=== PATIENT | male | born 1965 | race Caucasian/White ===

== ENCOUNTER 2018-01-24 12:53 | Outpatient (CLI) | payer OTHER, SELFPAY ==
--- NOTE | 2018-01-24 16:02 | W.PREOPHP ---
Date of service: 01/24/18 Assessment and Plan (1) Derangement of medial meniscus of left knee: Current visit: No Status: Acute Left knee arthroscopy with partial medial meniscectomy. Details of surgery were discussed with patient as well as risks, and pertinent anatomy. All questions were answered. History of Present Illness Chief Complaint: Left knee injury Narrative: Eduard is a 52-year-old male who is been complaining of left knee pain since an injury that he sustained a few months ago. He had made some slight improvement with conservative treatment, including an injection, but really only got to a point that was not completely better. He continues to have pain on daily basis, and at this point it is not improving anymore. He eventually had an MRI done which did show a medial meniscus tear of the left knee. He has had an injection which helped his knee pain for a limited amount of time. Since then the pain has returned to where it was prior to the injection. Although this is better since his injury, it is not to the point where he is happy with his result. Since he has failed conservative treatment at this point, Dr. Lagunas recommends a left knee arthroscopy with partial medial meniscectomy. Patient is anxious to proceed. Pertinent Surgical Information Patient denies history of CVA, UT, angina, asthma, COPD, renal or liver disorders, hepatitis, bleeding disorders, diabetes, immune or thyroid disorders. No complications from anesthesia. Review of Systems Constitutional Denies fever(s) ENT Denies dizziness and Denies sore throat Cardiovascular Denies chest pain, Denies palpitations and Denies dyspnea Respiratory Denies dyspnea Gastrointestinal Denies abdominal pain, Denies melena, Denies hematochezia, Denies diarrhea, Denies nausea and Denies vomiting Genitourinary Denies hematuria and Denies dysuria Neurologic Denies dizziness Endocrine Denies palpitations [facility] Medical History Sleep apnea (Chronic 04/01/14) Hyperlipidemia (Chronic 07/08/08) Essential hypertension (Chronic) Social History Smoking/Tobacco Use Status: Current every day Surgical History History of laparoscopic cholecystectomy (Chronic) Meds Home Medications Medication Instructions Recorded Confirmed Type ibuprofen 4 tab PO DAILY PRN 05/22/12 01/24/18 History omeprazole 20 mg PO DAILY tab-cap 05/22/12 01/24/18 History aspirin [Aspir-81] 81 mg PO DAILY #90 tab-cap 05/21/13 01/24/18 History amlodipine 5 mg PO DAILY #90 tab-cap 05/16/17 01/24/18 Rx pravastatin [Pravachol] 20 mg PO DAILY #90 tab-cap 05/16/17 01/24/18 Rx Allergies Allergy/AdvReac Type Severity Reaction Status Date / Time lisinopril AdvReac Intermediate cough Unverified 01/24/18 13:08 Exam [facility] Head: normocephalic and atraumatic General nose exam: no nasal discharge Throat: uvula midline and no uvular edema Other: soft palate rises symmetrically, no erythema Eyes Conjunctivae: conjunctivae normal Sclera: sclerae normal Pupils: PERRL Resp Effort & Inspection: normal respiratory effort Auscultation: clear to auscultation bilaterally and no wheezes Cardio Rate: regular rate Rhythm: regular rhythm Heart Sounds: S1 normal, S2 normal and no murmurs
--- NOTE | 2018-01-24 16:09 | HPE_ITS ---
Date of service: 01/24/18 Assessment and Plan (1) Derangement of medial meniscus of left knee: Current visit: No Status: Acute Left knee arthroscopy with partial medial meniscectomy. Details of surgery were discussed with patient as well as risks, and pertinent anatomy. All questions were answered. History of Present Illness Chief Complaint: Left knee injury Narrative: Eduard is a 52-year-old male who is been complaining of left knee pain since an injury that he sustained a few months ago. He had made some slight improvement with conservative treatment, including an injection, but really only got to a point that was not completely better. He continues to have pain on daily basis, and at this point it is not improving anymore. He eventually had an MRI done which did show a medial meniscus tear of the left knee. He has had an injection which helped his knee pain for a limited amount of time. Since then the pain has returned to where it was prior to the injection. Although this is better since his injury, it is not to the point where he is happy with his result. Since he has failed conservative treatment at this point, Dr. Lagunas recommends a left knee arthroscopy with partial medial meniscectomy. Patient is anxious to proceed. Pertinent Surgical Information Patient denies history of CVA, DC, angina, asthma, COPD, renal or liver disorders, hepatitis, bleeding disorders, diabetes, immune or thyroid disorders. No complications from anesthesia. Review of Systems Constitutional Denies fever(s) ENT Denies dizziness and Denies sore throat Cardiovascular Denies chest pain, Denies palpitations and Denies dyspnea Respiratory Denies dyspnea Gastrointestinal Denies abdominal pain, Denies melena, Denies hematochezia, Denies diarrhea, Denies nausea and Denies vomiting Genitourinary Denies hematuria and Denies dysuria Neurologic Denies dizziness Endocrine Denies palpitations [facility] Medical History Sleep apnea (Chronic 04/01/14) Hyperlipidemia (Chronic 07/08/08) Essential hypertension (Chronic) Social History Smoking/Tobacco Use Status: Current every day Surgical History History of laparoscopic cholecystectomy (Chronic) Meds Home Medications Medication Instructions Recorded Confirmed Type ibuprofen 4 tab PO DAILY PRN 05/22/12 01/24/18 History omeprazole 20 mg PO DAILY tab-cap 05/22/12 01/24/18 History aspirin [Aspir-81] 81 mg PO DAILY #90 tab-cap 05/21/13 01/24/18 History amlodipine 5 mg PO DAILY #90 tab-cap 05/16/17 01/24/18 Rx pravastatin [Pravachol] 20 mg PO DAILY #90 tab-cap 05/16/17 01/24/18 Rx Allergies Allergy/AdvReac Type Severity Reaction Status Date / Time lisinopril AdvReac Intermediate cough Unverified 01/24/18 13:08 Exam [facility] Head: normocephalic and atraumatic General nose exam: no nasal discharge Throat: uvula midline and no uvular edema Other: soft palate rises symmetrically, no erythema Eyes Conjunctivae: conjunctivae normal Sclera: sclerae normal Pupils: PERRL Resp Effort & Inspection: normal respiratory effort Auscultation: clear to auscultation bilaterally and no wheezes Cardio Rate: regular rate Rhythm: regular rhythm Heart Sounds: S1 normal, S2 normal and no murmurs
== END 2018-01-24 13:13 ==
PROVIDERS: PCP Emergency Medicine; Visit Provider Student in an Organized Health Care Education/Training Program
DX: Z01.818 Encounter for other preprocedural examination (principal)
CPT/HCPCS: NC

== ENCOUNTER 2018-02-01 06:15 | Day surgery (SDC) | payer OTHER, SELFPAY ==
[2018-02-01] VITALS (7 sets, daily range): BP systolic 120–145; BP diastolic 59–84; PULSE 62–69; RESP 16–20; TEMP 36.6; O2SAT 96–98
[2018-02-01] MEDS: Lactated Ringers 1,000 ML 80 ML IV (06:53)
--- NOTE | 2018-02-01 07:25 | W.PM.DSUDISC ---
Discharge Plan Disposition Patient Disposition: HOME Condition: Good Discharge Details Reason For Visit: Left Knee Arthroscopy Attending Provider: Rui Lagunas Primary Care Provider: Eben Padilla Home Meds and New Rx's Prescriptions: New ibuprofen 600 mg tablet 600 mg PO TID PRNQty: 90 RF: 3 acetaminophen 500 mg capsule 1,000 mg PO Q8H PRN (Reason: pain) Qty: 90 RF: 0 oxycodone 5 mg tablet 5 mg PO Q4H Qty: 10 RF: 0 Continue omeprazole 20 MG capsule,delayed release(DR/EC) 20 mg PO DAILY RF: 0 aspirin [Aspir-81] 81 MG tablet,delayed release (DR/EC) 81 mg PO DAILY Qty: 90 RF: 3 amlodipine 5 MG tablet 5 mg PO DAILY Qty: 90 RF: 4 pravastatin [Pravachol] 20 MG tablet 20 mg PO DAILY Qty: 90 RF: 3 Discontinued ibuprofen 200 MG tablet 4 tab PO DAILY PRN RF: 0 Discharge Instructions Stand Alone Forms: [facility] Knee Arthroscopy Equipment/Supplies: Partial Weight Bearing Crutches Activity:: Activity as Tolerated Remove Dressings/Wound Care:: 72 hours Shower/Bathe:: 72 hours Diet:: As Tolerated Discharge Orders Discharge Orders: Discharge Order (Routine); Ordered 02/01/18 Ordered By: Rui Lagunas DS: Diagnosis Discharge Diagnosis (1) Internal derangement of left knee: Status: Acute (2) Derangement of medial meniscus of left knee: Status: Acute
[2018-02-01] MEDS: Bupivacaine 0.25% Pres-Free 30 ML VIAL (07:41)
[2018-02-01] MEDS: Ketorolac 15 MG/ML VIAL IVP (08:27)
--- NOTE | 2018-02-01 08:52 | W.PM.OP ---
Date of service: 02/01/18 Time of Service: 08:52 Operative Note DATE OF PROCEDURE: 02/01/18 PRE-OP DIAGNOSIS: Left knee medial meniscal tear POST-OP DIAGNOSIS: other (Left knee radial medial meniscal tear and complex lateral meniscal tear) PROCEDURE: Left knee arthroscopic partial medial and lateral meniscectomy SURGEON: Rui Lagunas ANESTHESIA: GETA ESTIMATED BLOOD LOSS: 0 PATHOLOGY: none sent COMPLICATIONS: None Patient was transported to: PACU Patient's condition: stable Indications: I have seen Eduard in clinic for symptoms of a meniscus tear. This was confirmed based on MRI and exam findings. Nonoperative measures were exhausted but disability and pain persisted. I discussed knee arthroscopy with meniscal intervention with the patient. I reviewed the risks of the procedure to include, but not limited to, bleeding, infection, pain, stiffness, damage to nerves or vessels, recurrence, blood clot. Despite these risks, the patient elected to proceed. Findings: A diagnostic arthroscopy was performed with the following findings: Suprapatellar Pouch: Some inflammatory change, no loose bodies Medial Compartment: Radial meniscal tear just medial to the root, root disconnected from body of meniscus, grade I chondromalacia of the tibia and grade 2 chondral lesion of the femur primarily the weightbearing zones, no loose bodies Notch: ACL and PCL were intact Lateral Compartment: Complex meniscal tear at the level of the root, partially torn but intact meniscal root, no significant chondromalacia or signs of arthritis, no loose bodies Patellofemoral Compartment: Areas of grade 3 and focal grade IV chondromalacia of the patella with large osteophytes, no apparent patellar maltracking Procedure Description: Eduard was greeted in the preoperative holding area where the correct side was identified and marked. The consent was reviewed with the patient and signed. The history and physical was updated. All questions were answered. Eduard was taken back to the operating room. The patient was placed into the supine position on the operating room table. A nonsterile tourniquet was placed high onto the leg but not used. All bony prominences were well padded. Prophylactic antibiotics in the form of cefazolin were administered. The left leg was then prepped with Chloraprep and draped in a standard fashion with stockinette and extremity drape. A timeout to confirm correct identity, side and site, procedure, allergies, anesthesia, and medical concerns was performed. The leg was placed into a pneumatic leg morley, SPIDER2. A standard lateral portal was made at the lateral border of the patella tendon in line with the inferior pole of the patella, soft spot. The skin and deep tissue was incised sharply and the blunt trochar was inserted atraumatically. A diagnostic arthroscopy was performed and the findings are listed above. The suprapatellar pouch had mild inflammatory changes. The patellofemoral articulation showed focal areas of grade 3 and grade IV chondromalacia of the patella with some grade 2 changes of the superior aspect of the trochlea. The patella had good tracking. Large osteophytes are seen of the patella both superiorly and inferiorly. The lateral gutter had no loose bodies and the medial gutter had no loose bodies. The knee was brought into some valgus stress in extension to open the medial compartment. A medial portal was made, localized by a spinal needle. The portal was created with an #11 blade through skin and capsule under direct visualization avoiding any meniscal injury. A probe was then inserted into the medial compartment. The medial compartment was fully inspected. The chondral surface of the tibia showed some focal grade I chondromalacia and the surface of the femur showed grade II chondromalacia. The medial meniscus had a radial meniscal tear just medial to the root insertion extending all the way to the periphery. After evaluation, the meniscus was debrided down to a stable base using a series of biters and arthroscopic kathy. It was probed afterwards to confirm that the tear had been removed and the meniscus was stable. During this debridement I smoothed the edges of this radial tear so there is no loose flaps. However, I did not perform a repair. There was a gap between the meniscal body and the meniscal root. The remnant medial meniscus however was well attached to the periphery of the capsule preventing complete displacement. The notch was then inspected which showed an intact ACL and an intact PCL. The leg was then brought into a figure of 4 position. The lateral compartment was fully inspected with the arthroscope and a probe. The chondral surface of the lateral femur showed no significant chondromalacia. The chondral surface of the lateral tibia showed no significant chondromalacia. The lateral meniscus had a complex meniscal tear involving the root. The root was intact although there was some partial tearing. This was debrided down with an arthroscopic shaver. The arthroscope was brought back into the suprapatellar pouch and the leg was in full extension. The knee was thoroughly irrigated with the arthroscopic fluid on high flow and pressure. Inflow was stopped and excess fluid was removed. The wounds were closed with 4-0 Nylon. They were dressed with Xeroform, 4x4 gauze, ABD pad, Kerlix and an ROWENA wrap. A cryo-cuff was applied. The patient tolerated the procedure well and was returned to the Same Day Surgery area in a stable condition suffering no known complication.
[2018-02-01] MEDS: oxyCODONE 5 MG TAB PO (09:30)
== END 2018-02-01 10:20 | disposition home or self-care (01) ==
PROVIDERS: PCP Emergency Medicine; Visit Provider Student in an Organized Health Care Education/Training Program
PROC: (CPT 29870; principal; 2018-02-01 07:30)
DX: S83.222A Peripheral tear of medial meniscus, current injury, left knee, initial encounter (principal); S83.272A Complex tear of lateral meniscus, current injury, left knee, initial encounter; X58.XXXA Exposure to other specified factors, initial encounter; M94.262 Chondromalacia, left knee; M22.42 Chondromalacia patellae, left knee; M25.762 Osteophyte, left knee
CPT/HCPCS: 29880; J0690; J1100; J1885; J2405

== ENCOUNTER 2018-03-21 09:14 | Outpatient (CLI) | payer OTHER, SELFPAY ==
[2018-03-21 11:43] LABS: BUN 19 mg/dL (7-18); CREATININE 0.83 mg/dL (0.70-1.30); Chloride 104 mmol/L (98-107); Glucose 109 mg/dL (70-100); Potassium 4.3 mmol/L (3.5-5.1); Sodium 139 mmol/L (136-145)
[2018-03-21 16:15] LABS: Hemoglobin A1C 5.8 % (4.5-6.2)
== END 2018-03-21 09:34 ==
PROVIDERS: PCP Emergency Medicine; Visit Provider Emergency Medicine
DX: E11.9 Type 2 diabetes mellitus without complications (principal); I10 Essential (primary) hypertension
CPT/HCPCS: 36415; 80048; 83036

== ENCOUNTER 2018-12-31 11:03 | Day surgery (SDC) | payer BC, SELFPAY ==
--- NOTE | 2018-12-31 07:09 | COLE_ITS ---
Date of service: 12/31/18 Time of Service: 12:56 Colonoscopy Report Date of procedure: 12/31/18 Pre-op diagnosis general: Colon Cancer Screening Post-op diagnosis procedure note: other (numerous polyps in clustera scattered from cecum to prox. descending) Procedure: Colonoscopy with random biopsies of multiple polyps throughout the colon Surgeon: Deneen Griffith Anesthesia proc note operative: other (General/ ASA 2/Ericka Cheng, ANDRES) Estimated blood loss (mL): 5 Pathology: other (Numerous bx of polyps from cecum to sigmoid colon) Complications: None Disposition: same day Indications: Mr. Correia is a pleasant 53 year old male seen in the office for a screening Colonoscopy. He has no family history of colon cancer. Risks, benefits and complications have been reviewed. Complications include but are not limited to bleeding, pain, perforation, missed small lesion/polyp, sore throat, aspiration and adverse reaction to the medications. Questions were entertained and answered to their satisfaction and they wished to proceed. No guarantees were given or implied. Prep: Miralax/Dulcolax Procedure Start Time: 12:56 Procedure End Time: 13:25 Retraction Time: 20 minutes Findings: Numerous polyps (too many to count) from cecum to proximal descending colon. a few polyps in the sigmoid colon and rectum. Procedure Description: After informed consent was obtained the patient was taken to the procedure room and placed in a left decubitous position. Monitors were applied and a time out was done. The patients name, date of , procedure, allergies to medications and metal in their body was reviewed. The patient was then sedated. Once sedated and comfortable a rectal exam was done. External exam was normal. Internal exam revealed a normal sphincter tone and no palpable masses. The prostate felt smooth. The scope was then introduced and retro-flexed. No internal hemorrhoids or masses were identified. The scope was then advanced to the cecum without difficulty. The TI and appendiceal orifice were identified. The prep was adequate. The scope was then slowly retracted over 20 minutes back into the rectum. There were numerous polyps from cecum to proximal descending colon. Most were clustered. There were a few clusters of polyps with ulceration concerning for cancer. Random biopsies were done with cold forceps of as many of the clusters of polyps as possible. There were a few single polyps in the sigmolid colon. The scope was removed and the patient was woken up and taken back to Same day surgery in stable condition. The patient tolerated the procedure well and there were no immediate c omplications. Follow up: I discussed the case with Rui Wells MD, Colorectal Surgeon at [facility] [place]. I will send him color copies of the pictures I took as well as the pathology results. If there is neoplasm noted in any of the biopsies then I will order a CT scan of Chest, ABDO/Pelvis as well as labs prior to being seen at [facility] [place]. Pathology was also contacted to give them a heads up on what I saw and what I am worried about.
--- NOTE | 2018-12-31 07:11 | PDOC.DSDIS_ITS ---
Discharge Plan Disposition Patient Disposition: HOME Condition: Good Discharge Details Reason For Visit: SCREENING Attending Provider: Deneen Griffith Primary Care Provider: Eben Padilla Home Meds and New Rx's Prescriptions: Continued omeprazole 20 MG capsule,delayed release(DR/EC) 20 mg PO DAILY RF: 0 aspirin [Aspir-81] 81 MG tablet,delayed release (DR/EC) 81 mg PO DAILY Qty: 90 RF: 3 amlodipine 5 mg tablet 5 mg PO DAILY Qty: 90 RF: 4 pravastatin [Pravachol] 20 mg tablet 20 mg PO DAILY Qty: 90 RF: 3 acetaminophen 500 mg capsule 1,000 mg PO Q8H PRN (Reason: pain) Qty: 90 RF: 0 ibuprofen 600 mg tablet 200 - 600 mg PO TID PRNRF: 0 Discontinued polyethylene glycol 3350 17 gram/dose powder 238 g PO ONCE Qty: 238 RF: 0 bisacodyl [Dulcolax (bisacodyl)] 5 mg tablet,delayed release (DR/EC) 5 mg PO ONCE Qty: 4 RF: 0 Discharge Instructions Instructions: Colonoscopy (DC), Colorectal Polyps (DC) Additional Instructions: Findings: Numerous polyps Follow up: I will call you with results. You [place] hear [place] [facility] [place] the next 10 days to 2 weeks Please call if you develop: fevers >101.5 Nausea or Vomiting Abdominal pain that is not transient DAY SURGERY UNIT POST ENDOSCOPY INSTRUCTIONS 1. Because there will be medication in your system for the next 24 hours, you may feel a little sleepy. Your coordination will be affected. Therefore: a. Do not drive or operate dangerous equipment for 24 hours. b. Do not drink alcohol beverages for 24 hours (not even beer). c. Plan to go home and rest for the day. 2. Generally there are no restrictions on your activity after a day or so has gone by, but you may feel a bit fatigued for a few days. 3 After you arrive home you may have a light meal and return to a normal diet as you can tolerate it without feeling sick to your stomach. 4. After surgery, you may feel pain or discomfort. This should be only transient, but if it persists please contact your doctor. 5. If there are any questions regarding the findings of your procedure, please feel free to contact your doctor. 6. If you are unable to contact your doctor with a problem, contact the hospital at [phone]. 8. Continue all your regular medications unless directed otherwise. I understand the above instructions and have no questions. Signature of Patient or Responsible Adult Escort Date/Time Name of Responsible Adult Escort Signature of Nurse Date/Time Activity:: Activity as Tolerated Diet:: High Fiber and Heart healthy Discharge Orders Discharge Orders: Discharge Order (Routine); Ordered 12/31/18 Ordered By: Deneen Griffith DS: Diagnosis Discharge Diagnosis (1) S/P colonoscopy: Status: Acute (2) Colorectal polyps: Status: Acute
[2018-12-31 11:28] VITALS: BP 130/77; PULSE 66; RESP 18; TEMP 36.5; O2SAT 97
[2018-12-31] MEDS: Lactated Ringers 1,000 ML 80 ML IV (11:40)
--- NOTE | 2018-12-31 13:06 | BOWEL_PTH ---
PATIENT: Eduard Correia LOC: [facility] U#:[id number] AGE/SX: 53/M ROOM: RE12/31/[address]: Deneen Griffith MD : [id number] BED: DIS: 12/31/2018 SPEC #: [id number] RECD: 12/31/18 18:21 STATUS: KAREL REQ #: [id number] KANWAL: 12/31/18 13:[address]: Deneen Griffith DEPT: Surgical Specimen RECD BY: Savanah Childers ENTERED: 12/31/18 18:22 SP TYPE: Bowel OTHR DR: Eben Padilla DO Tissues: 1 - BIOPSY BOWEL 2 - BIOPSY BOWEL 3 - BIOPSY BOWEL 4 - BIOPSY BOWEL 5 - BIOPSY BOWEL Procedures: GROSS AND MICRO LEVEL 4 Comments: [id number]
[2018-12-31 14:07] VITALS: BP 142/87; PULSE 60; RESP 17; TEMP 36.4; O2SAT 98
== END 2018-12-31 14:46 | disposition home or self-care (01) ==
LOC: SUR 11:04
PROVIDERS: PCP Emergency Medicine; Visit Provider Surgery
PROC: 0DJD8ZZ Inspection of Lower Intestinal Tract, Via Natural or Artificial Opening Endoscopic (ICD-10-PCS; CPT 45378; principal; 2018-12-31 12:30)
DX: Z12.11 Encounter for screening for malignant neoplasm of colon (principal); K52.9 Noninfective gastroenteritis and colitis, unspecified; I10 Essential (primary) hypertension; K21.9 Gastro-esophageal reflux disease without esophagitis
CPT/HCPCS: 45380; 88305

== ENCOUNTER 2019-01-16 11:16 | Outpatient (CLI) | payer BC, SELFPAY ==
--- NOTE | 2019-01-16 11:13 | DI.RAD_ITS ---
EXAM: XR CHEST 2V PA LATERAL INDICATION: cough/wheezing, upper respiratory infection, J06.9. COMPARISON: CHEST 2 VIEWS PA,LAT from 03/14/2015 TECHNIQUE: 2D digital imaging was performed. FINDINGS: The heart size and pulmonary vasculature are within normal limits. No focal consolidating infiltrate , effusion, or pneumothorax is identified. Degenerative changes are present in the spine. IMPRESSION: No acute pulmonary process.
[2019-01-16 12:04] LABS: Abs Immature Grans 0.05 k/cumm (0.0-0.09); Absolute Basophil Count 0.07 k/cumm (0.0-0.2); Absolute Eosinophil Count 0.25 k/cumm (0.0-0.7); Absolute Lymphocyte Count 2.76 k/cumm (1.2-3.4); Absolute Monocyte Count 0.74 k/cumm (0.11-0.7); Absolute Neutrophil Count 7.88 k/cumm (1.2-6.7); Basophils % 0.6; Eosinophils % 2.1; HCT 41.7 % (40.0-50.0); HGB 14.6 g/dL (13.5-17.5); Immature Grans % 0.4; Lymphocytes % 23.5; Mean Corpuscular Hemoglobin 30.4 pg (27.0-33.0); Mean Corpuscular Volume 86.9 fL (80-95); Mean Platelet Volume 10.7 fL (8.0-11.0); Monocytes % 6.3; Neutrophils % 67.1; Platelet Count 210 x1000/uL (130-400); RBC Distribution Width 12.2 % (11.8-14.1); White Blood Cell Count 11.75 k/cumm (4.4-10.8)
[2019-01-16 13:16] LABS: ALT 68 U/L (16-63); AST 24 U/L (15-37); Albumin 4.2 g/dL (3.4-5.0); Alkaline Phosphatase 57 U/L (46-116); Anion Gap 9.6 mmol/L (3-11); BUN 20 mg/dL (7-18); Bilirubin, Total 0.3 mg/dL (0.2-1.0); CO2 27.4 mmol/L (21.0-32.0); CREATININE 0.85 mg/dL (0.70-1.30); Calcium 9.2 mg/dL (8.5-10.1); Calculated LDL 71 mg/dL; Chloride 104 mmol/L (98-107); Cholesterol 144 mg/dL (50-200); Glucose 88 mg/dL (70-100); HDL Cholesterol 22 mg/dL (40-60); Potassium 4.6 mmol/L (3.5-5.1); Sodium 141 mmol/L (136-145); Total Protein 7.1 g/dL (6.4-8.2); Triglyceride 258 mg/dL (30-150)
== END 2019-01-16 11:36 ==
PROVIDERS: PCP Emergency Medicine; Visit Provider Internal Medicine
DX: R05 Cough (principal); R06.2 Wheezing; J06.9 Acute upper respiratory infection, unspecified; R50.9 Fever, unspecified; E78.5 Hyperlipidemia, unspecified
CPT/HCPCS: 36415; 80053; 80061; 71046; 85025

== ENCOUNTER 2019-02-18 10:35 | Outpatient (CLI) | payer BC, SELFPAY ==
--- NOTE | 2019-02-18 10:40 | DI.RAD_ITS ---
EXAM: XR KNEE RT 3V AP,LAT,RAMIRO INDICATION: eval R knee pain. COMPARISON: LEFT KNEE 4+ VIEWS from 07/08/2017 TECHNIQUE: 2D digital imaging was performed. FINDINGS: There is mild narrowing of the medial femoral tibial joint and the patellofemoral joint. Periarticul ar spurring is seen involving all 3 joint compartments. There are enthesophytes seen at the superior and inferior aspect of the patella. No acute fracture or dislocation is seen. The soft tissues are unremarkable. IMPRESSION: Mild to moderate degenerative changes of the right knee.
--- NOTE | 2019-02-18 10:42 | DI.RAD_ITS ---
EXAM: XR KNEE LT 3V AP,LAT,RAMIRO INDICATION: L knee pain. COMPARISON: LEFT KNEE 4+ VIEWS from 07/08/2017 XR KNEE RT 3V AP,LAT,RAMIRO from 02/18/2019 TECHNIQUE: 2D digital imaging was performed. FINDINGS: There is mild narrowing of the medial femoral tibial joint space. Periarticular spurring is seen in the lateral femoral tibial joint and the posterior patella. There are enthesophytes seen at the ante rior superior and anterior inferior patella. There is again seen an exophytic lesion protruding off the posterior proximal tibia most suggestive of an osteochondroma. This appears stable. No acute fr acture or dislocation is seen. The soft tissues are unremarkable. IMPRESSION: Stable degenerative changes of the left knee.
== END 2019-02-18 10:55 ==
PROVIDERS: PCP Emergency Medicine; Visit Provider Student in an Organized Health Care Education/Training Program
DX: M25.561 Pain in right knee (principal); M25.562 Pain in left knee; M17.0 Bilateral primary osteoarthritis of knee
CPT/HCPCS: 73562

== ENCOUNTER 2019-04-22 17:45 | Emergency (ER) | payer BC, SELFPAY ==
[2019-04-22 17:50] VITALS: BP 164/88; PULSE 77; RESP 20; TEMP 36.7; O2SAT 97
[2019-04-22 17:58] VITALS: RESP 18
--- NOTE | 2019-04-22 18:02 | ED.GENADUL_ITS ---
Discharge Plan Disposition Patient Disposition: AGAINST MEDICAL ADVICE Condition: Good Discharge Details Chief Complaint: Chest Pain Clinical Impression: Abdominal pain, Atypical chest pain Primary Care Provider: Eben Padilla ED Provider: Gabriella Campbell Home Meds and New Rx's Prescriptions: Continued omeprazole 20 MG capsule,delayed release(DR/EC) 20 mg PO DAILY RF: 0 aspirin [Aspir-81] 81 MG tablet,delayed release (DR/EC) 81 mg PO DAILY Qty: 90 RF: 3 amlodipine 5 mg tablet 5 mg PO DAILY Qty: 90 RF: 4 pravastatin [Pravachol] 20 mg tablet 20 mg PO DAILY Qty: 90 RF: 3 acetaminophen 500 mg capsule 1,000 mg PO Q8H PRN (Reason: pain) Qty: 90 RF: 0 Discharge Instructions Instructions: Chest Pain (ED), Abdominal Pain (ED) Additional Instructions: Drink plenty of fluids. Avoid spicy foods, caffeine, chocolate, peppermint, alcohol or smoking as these can be triggers for gerd or reflux. Call your primary care doctor tomorrow to schedule a follow-up appointment for evaluation within the next week and for referral for outpatient repeat CT chest within the next 6 months for further evaluation of your right upper lobe lung nodule. Return to the emergency department if you develop any worsening or new concerning symptoms. 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 He states he frequently has pain in his right upper quadrant so this is not unusual, but he states he became more concerned when it radiated to his left upper quadrant. He does admit to intermittent radiation to his right chest. He states the pain lasted 1 hour and then resolved. He currently denies any symptoms. He states he did feel sweaty when the pain started but denies any nausea, vomiting, dizziness or shortness of breath. He also denies any fever, cough, vomiting, diarrhea or urinary symptoms. EKG on arrival notes a rate of 74, sinus with T wave inversion in lead III which is been seen in previous EKG. No acute ST ischemic changes. He is hemodynamically stable. He appears in no acute distress and nontoxic. He has tenderness to palpation in the right upper quadrant, epigastric region and left upper quadrant. His chest is nontender. Differential diagnosis appears more consistent with a GI etiology. He denies any tearing or ripping sensation so does not appear consistent with dissection. He denies any shortness of breath and has no DVT/PE risk factors and not consistent with PE. 2019 -- Patient referred for labs and imaging. Normal white blood cell count, electrolytes, lipase and troponin. CT chest noted a 7 mm right upper lobe nodule but no other acute findings and CT abdomen negative. Considering patient's age and history, recommended a repeat troponin but he is declining to stay at this time. The risks of and disability due to a cardiac etiology such as MD, explained and patient understands and would still like to leave. He demonstrates capacity make decisions. AMA form signed. He was advised to follow-up with his primary care doctor for evaluation and for repeat CT chest in the next 6 to 12 months. Usual and customary return precautions given prior to discharge. Medical Records Medical records reviewed: Yes I reviewed the patient's medical records. Imaging Data Radiologic Study: Radiologist's impression: CT Chest With Contrast Exam date and time: 04/22/2019 6:43 PM Age: 53 years old Clinical indication: Patient HX: PT stated no abdominal issues, chest pain for hour and a half TECHNIQUE: Imaging protocol: Computed tomography of the chest with intravenous contrast. COMPARISON: CR XR CHEST 2V PA LATERAL 01/16/2019 11:13 AM FINDINGS: Lungs: 7 mm nodule in the right upper lobe (431). Pleural space: Unremarkable. No pneumothorax. No pleural effusion. Heart: Unremarkable. No cardiomegaly. No pericardial effusion. Aorta: Unremarkable. No aortic aneurysm. Lymph nodes: Unremarkable. No enlarged lymph nodes. Bones/joints: Mild degenerative changes in the spine. Soft tissues: Unremarkable. IMPRESSION: 7 mm nodule in the right upper lobe (4/31).For patients at low risk (minimal or absent history of smoking and of other known risk factors), recommend CT at 6-12 months, then consider CT at 18-24 months. For patients at high risk (history of smoking or of other known risk factors), recommend CT at 6-12 months, then CT at 18-24 months. (Teresa et al., Fleischner Society, 2017) CT Abdomen And Pelvis With Contrast Exam date and time: 04/22/2019 6:43 PM Age: 53 years old Clinical indication: Patient HX: PT stated no abdominal issues, chest pain for hour and a half TECHNIQUE: Imaging protocol: Computed tomography of the abdomen and pelvis with intravenous contrast. COMPARISON: CR XR CHEST 2V PA LATERAL 01/16/2019 11:13 AM FINDINGS: Liver: Normal. No mass. Gallbladder and bile ducts: Cholecystectomy. Pancreas: Normal. No ductal dilation. Spleen: Normal. No splenomegaly. Adrenals: Normal. No mass. Kidneys and ureters: Normal. No hydronephrosis. Stomach and bowel: Unremarkable. No obstruction. No mucosal thickening. Appendix: No evidence of appendicitis. Intraperitoneal space: Unremarkable. No free air. No significant fluid collection. Vasculature: Mild atherosclerosis. Lymph nodes: Unremarkable. No enlarged lymph nodes. Bladder: Unremarkable as visualized. Reproductive: Unremarkable as visualized. Bones/joints: Mild degenerative changes in the spine. Soft tissues: Small umbilical hernia containing fat, uncomplicated. IMPRESSION: No acute finding. Lab Data Lab results reviewed: Yes I reviewed the patient's lab results. Labs: Laboratory Tests Range/Units 04/22/19 04/22/19 04/22/19 18:00 18:00 21:00 WBC (4.4-10.8) k/cumm 10.36 RBC (4.50-6.00) m/cumm 4.92 Hgb (13.5-17.5) g/dL 14.9 Hct (40.0-50.0) % 42.7 MCV (80-95) fL 86.8 MCH (27.0-33.0) pg 30.3 MCHC (32.0-36.0) g/dL 34.9 RDW (11.8-14.1) % 12.4 Plt Count (130-400) x1000/uL 220 MPV (8.0-11.0) fL 10.8 Immature Gran % % 0.4 Neutrophils % 64.8 Lymphocytes % 25.8 Monocytes % 5.5 Eosinophils % 2.9 Basophils % 0.6 Absolute Neutrophils (1.2-6.7) k/cumm 6.72 H Absolute Lymphocytes (1.2-3.4) k/cumm 2.67 Absolute Monocytes (0.11-0.7) k/cumm 0.57 Absolute Eosinophils (0.0-0.7) k/cumm 0.30 Absolute Basophils (0.0-0.2) k/cumm 0.06 Sodium (136-145) mmol/L 138 Potassium (3.5-5.1) mmol/L 3.9 Chloride (98-107) mmol/L 102 Carbon Dioxide (21.0-32.0) mmol/L 25.8 Anion Gap (3-11) mmol/L 10.2 BUN (7-18) mg/dL 14 Creatinine (0.70-1.30) mg/dL 0.87 Estimated GFR/1.73 m2 (mL/min/1.73m2) >= 60.00 Glucose (74-106) mg/dL 108 H Calcium (8.5-10.1) mg/dL 8.3 L Magnesium (1.8-2.4) mg/dL 1.8 Total Bilirubin (0.2-1.0) mg/dL 0.2 AST (15-37) U/L 21 ALT (16-63) U/L 51 Alkaline Phosphatase (46-116) U/L 52 Troponin I (<0.06) ng/Ml < 0.05 Cancelled Total Protein (6.4-8.2) g/dL 7.6 Albumin (3.4-5.0) g/dL 4.1 Lipase (73-393) U/L 139 ECG Data Attestation: I personally reviewed and interpreted this ECG (s) as follows: Interpretation: Rate of 74, sinus, T wave inversion in lead III. No acute ST elevation or depression. DE 184. QTc 417. QRS 80. HPI General Mode of arrival: ambulatory . Date/Time Provider Initiated Documentation: 04/22/19 17:56 . Limitations to Documentation: no limitations . Information obtained by: patient . History of Present Illness 53 year old M presents to the emergency department with the chief complaint of Upper abdominal pain, Quality is described as sharp, and is localized to the abdomen. Patient reports radiation to (Rare radiation for right upper quadrant to right chest). Patient started experiencing this hour(s) (1) and it has been now resolved. No relieving factors improve symptom(s), No exacerbating factors reported . Patient notes denies cough, diaphoresis, fever/chills, headaches, loss of appetite, malaise, nausea/vomiting, rash, seizure, shortness of breath, syncope and weakness. Patient did receive the following treatments prior to arrival, none Related Data Home Medications Medication Instructions Recorded Confirmed omeprazole 20 mg PO DAILY tab-cap 05/22/12 04/22/19 aspirin [Aspir-81] 81 mg PO DAILY #90 tab-cap 05/21/13 04/22/19 acetaminophen 1,000 mg PO Q8H PRN #90 cap 02/01/18 04/22/19 amlodipine 5 mg tablet 5 mg PO DAILY #90 tab-cap 08/08/18 04/22/19 pravastatin 20 mg tablet 20 mg PO DAILY #90 tab-cap 08/08/18 04/22/19 Previous Rx's Medication Instructions Recorded acetaminophen 1,000 mg PO Q8H PRN #90 cap 02/01/18 amlodipine 5 mg tablet 5 mg PO DAILY #90 tab-cap 08/08/18 pravastatin 20 mg tablet 20 mg PO DAILY #90 tab-cap 08/08/18 Allergies Allergy/AdvReac Type Severity Reaction Status Date / Time lisinopril AdvReac Intermediate cough Verified 04/17/19 10:05 General Stated Complaint: Chest Pain VERITO: 2 Review of Systems All systems reviewed & are unremarkable except as noted in HPI and below Constitutional Constitutional: Reports as per HPI, Denies chills and Denies fever(s) Eyes Eyes: Denies blurry vision ENT Ears, Nose, Mouth, and Throat: Denies dizziness, Denies sore throat and Denies throat swelling Cardiovascular Cardiovascular: Denies chest pain and Denies dyspnea Respiratory Respiratory: Denies cough and Denies dyspnea Gastrointestinal Gastrointestinal: Reports abdominal pain, Denies diarrhea and Denies vomiting Genitourinary Genitourinary: Denies hematuria and Denies dysuria Musculoskeletal Musculoskeletal: Denies back pain and Denies numbness Integumentary/Breasts Skin/Breast: Denies lesions and Denies rash Neurologic Neurologic: Denies dizziness, Denies focal weakness and Denies numbness Allergic/Immunologic Allergic/Immunologic: Denies throat swelling [facility] Medical History Arm paresthesia, right (Acute) Colorectal polyps (Acute) Essential hypertension (Chronic) Neg MPI 04/04 Hyperlipidemia (Chronic 07/08/08) TYPE IV Sleep apnea (Chronic 04/01/14) with CPAP Surgical History History of arthroscopic knee surgery (Chronic) History of laparoscopic cholecystectomy (Chronic) S/P colonoscopy (Acute ~12/31/18) Social History Smoking/Tobacco Use Status: Current every day Tobacco Type: cigarettes Smoking packs per day: 0.5 Smoking cigarettes per day: 10.0 Years smoked: 20 Smoking pack-years: 10.00 Alcohol Intake: current Alcohol Intake frequency: a few times a month Alcohol type: hard liquor Drug use: Never Substance use type: does not use Current gender identity: male Do you feel safe at home: Yes Do you feel safe in your relationship?: Yes Exam Const General: cooperative, healthy appearing and no acute distress HENMT Head: normal to inspection Face and sinus: normal facial exam Eyes General: appearance normal, both eyes and all related structures EOM: EOM intact bilaterally Neck Neck: normal visual inspection and No submandibular swelling Lymphatic: no lymphadenopathy noted Chest Chest: normal inspection of the chest and no tenderness Resp Effort & Inspection: normal respiratory effort and able to speak in complete sentences Auscultation: clear to auscultation bilaterally Cardio Rate: regular rate Rhythm: regular rhythm GI Inspection: normal to inspection and obesity Palpation: soft, not firm, not rigid and tender in the epigastrum, in the LUQ and in the RUQ Auscultation: normal bowel sounds Back/Spine/Pelvis Pelvis: no pain with anterior-posterior compression Skin General skin exam: no rashes or lesions noted Neuro General: alert, awake and oriented x3 Cognition: normal cognition Speech: speech normal Motor: muscle tone normal throughout Sensory Exam: no sensory deficits noted Extrem General: normal to inspection, full ROM, normal capillary refill, no calf tenderness bilaterally and no edema Psych Appearance: grossly normal Mental Status: mental status grossly normal Speech and Movement: speech and movement normal Affect: normal affect Course Vital Signs Vital signs: Vital Signs Temperature 98.1 F 04/22/19 17:50 Pulse 77 04/22/19 17:50 Respiratory Rate 20 04/22/19 17:50 Blood Pressure 164/88 H 04/22/19 17:50 Pulse Oximetry 97 04/22/19 17:50 Temperature 98.1 F 04/22/19 17:50 Temperature Source Skin 04/22/19 17:50 Pulse 77 04/22/19 17:50 Respiratory Rate 18 04/22/19 17:58 Respiratory Effort Non-Labored 04/22/19 17:58 Respiratory Depth Normal 04/22/19 17:58 Respiratory Pattern Normal 04/22/19 17:58 Blood Pressure 164/88 H 04/22/19 17:50 Blood Pressure Position Sitting 04/22/19 17:50 Pulse Oximetry 97 04/22/19 17:50 Oxygen Delivery Method Room Air 04/22/19 17:50 Oxygen Flow Rate 0 04/22/19 17:50
[2019-04-22 18:09] LABS: Abs Immature Grans 0.04 k/cumm (0.0-0.09); Absolute Basophil Count 0.06 k/cumm (0.0-0.2); Absolute Lymphocyte Count 2.67 k/cumm (1.2-3.4); Absolute Monocyte Count 0.57 k/cumm (0.11-0.7); Absolute Neutrophil Count 6.72 k/cumm (1.2-6.7); Basophils % 0.6; Eosinophils % 2.9; HCT 42.7 % (40.0-50.0); HGB 14.9 g/dL (13.5-17.5); Immature Grans % 0.4 %; Lymphocytes % 25.8; Mean Corp. HGB Concentration 34.9 g/dL (32.0-36.0); Mean Corpuscular Hemoglobin 30.3 pg (27.0-33.0); Mean Corpuscular Volume 86.8 fL (80-95); Mean Platelet Volume 10.8 fL (8.0-11.0); Monocytes % 5.5; Neutrophils % 64.8; Platelet Count 220 x1000/uL (130-400); RBC 4.92 m/cumm (4.50-6.00); RBC Distribution Width 12.4 % (11.8-14.1); White Blood Cell Count 10.36 k/cumm (4.4-10.8)
[2019-04-22 18:23] LABS: ALT 51 U/L (16-63); AST 21 U/L (15-37); Albumin 4.1 g/dL (3.4-5.0); Alkaline Phosphatase 52 U/L (46-116); Anion Gap 10.2 mmol/L (3-11); BUN 14 mg/dL (7-18); Bilirubin, Total 0.2 mg/dL (0.2-1.0); CO2 25.8 mmol/L (21.0-32.0); CREATININE 0.87 mg/dL (0.70-1.30); Calcium 8.3 mg/dL (8.5-10.1); Chloride 102 mmol/L (98-107); Glucose 108 mg/dL (74-106); Lipase 139 U/L (73-393); Magnesium 1.8 mg/dL (1.8-2.4); Potassium 3.9 mmol/L (3.5-5.1); Sodium 138 mmol/L (136-145); Total Protein 7.6 g/dL (6.4-8.2)
[2019-04-22 18:24] LABS: Troponin I < 0.05 ng/Ml (<0.06)
[2019-04-22] MEDS: Omnipaque 350 MG/ML 100 ML BTL IJ (18:49)
--- NOTE | 2019-04-22 18:52 | DI.CT_ITS ---
EXAM: CT CHEST/ABD/PEL W CLINICAL HISTORY: upper abd pain, R radiating to L. TECHNIQUE: Imaging Protocol: Axial computed tomography images with coronal and sagittal reformatted images were created and reviewed CONTRAST MATERIAL: Intravenous: Omnipaque 350 Contrast volume:100 mL Oral: No COMPARISON: No exams were available for comparison FINDINGS: CHEST: Thyroid: Unremarkable as visualized. Tracheobronchial tree: Patent where visualized. Mediastinum and Melody: No dominant adenopathy or fluid collection. Pulmonary parenchyma: No consolidation or dominant measurable mass. No architectural distortion. The re is a triangular density associated with the minor fissure on the right (series 4, image 31). This is most suggestive of a lymph node. Pleura: No effusion or pneumothorax. Lymph nodes: Within normal limits. Aorta: Thoracic portion non-dilated. Heart: No cardiomegaly or significant pericardial effusion. Mild coronary artery calcification. Bones: Degenerative changes. ABDOMEN: Liver: Diffuse fatty infiltration. No measurable mass. Gallbladder and biliary tract: Status post cholecystectomy. No biliary ductal dilatation. Pancreas: Normal density, no abnormal calcifications or inflammatory process. Spleen: Normal. Kidneys: Normal size, contour and axis. No radiodense stones or obstructive uropathy. Small cyst in t he left kidney. Adrenal glands: No masses seen. Aorta: Mild atherosclerosis. No aneurysmal dilatation. Lymph nodes: Within normal limits. PELVIS: Bladder: Symmetric distention, no gross wall thickening. Bowel: No obstruction or bowel wall thickening. Normal appendix. Peritoneal cavity: No ascites, collection or mesenteric inflammatory response. Small fat containing u mbilical hernia. Bones: Mild degenerative changes. Reproductive organs: Within normal limits. IMPRESSION: No evidence of an acute abdominal or pelvic process. No acute pulmonary process. DATA REPOSITORY: All CT scans at this facility are submitted to the National Radiology Data Registry (NRDR) Dose Index Registry (DIR) with the [employer] (ACR). RADIATION OPTIMIZATION: All CT scans at this facility use at least one of these dose optimization te chniques: automated exposure control; mA and/or kV adjustment per patient size (includes targeted exa ms where dose is matched to clinical indication); or iterative reconstruction.
--- NOTE | 2019-04-22 19:40 | DI.VRAD_ITS ---
PROCEDURE INFORMATION: Exam: CT Chest With Contrast Exam date and time: 04/22/2019 6:43 PM Age: 53 years old Clinical indication: Patient HX: PT stated no abdominal issues, chest pain for hour and a half TECHNIQUE: Imaging protocol: Computed tomography of the chest with intravenous contrast. COMPARISON: CR XR CHEST 2V PA LATERAL 01/16/2019 11:13 AM FINDINGS: Lungs: 7 mm nodule in the right upper lobe (4/31). Pleural space: Unremarkable. No pneumothorax. No pleural effusion. Heart: Unremarkable. No cardiomegaly. No pericardial effusion. Aorta: Unremarkable. No aortic aneurysm. Lymph nodes: Unremarkable. No enlarged lymph nodes. Bones/joints: Mild degenerative changes in the spine. Soft tissues: Unremarkable. IMPRESSION: 7 mm nodule in the right upper lobe (4/31).For patients at low risk (minimal or absent history of smoking and of other known risk factors), recommend CT at 6-12 months, then consider CT at 18-24 months. For patients at high risk (history of smoking or of other known risk factors), recommend CT at 6-12 months, then CT at 18-24 months. (Teresa et al., Fleischner Society, 2017) PROCEDURE INFORMATION: Exam: CT Abdomen And Pelvis With Contrast Exam date and time: 04/22/2019 6:43 PM Age: 53 years old Clinical indication: Patient HX: PT stated no abdominal issues, chest pain for hour and a half TECHNIQUE: Imaging protocol: Computed tomography of the abdomen and pelvis with intravenous contrast. COMPARISON: CR XR CHEST 2V PA LATERAL 01/16/2019 11:13 AM FINDINGS: Liver: Normal. No mass. Gallbladder and bile ducts: Cholecystectomy. Pancreas: Normal. No ductal dilation. Spleen: Normal. No splenomegaly. Adrenals: Normal. No mass. Kidneys and ureters: Normal. No hydronephrosis. Stomach and bowel: Unremarkable. No obstruction. No mucosal thickening. Appendix: No evidence of appendicitis. Intraperitoneal space: Unremarkable. No free air. No significant fluid collection. Vasculature: Mild atherosclerosis. Lymph nodes: Unremarkable. No enlarged lymph nodes. Bladder: Unremarkable as visualized. Reproductive: Unremarkable as visualized. Bones/joints: Mild degenerative changes in the spine. Soft tissues: Small umbilical hernia containing fat, uncomplicated. IMPRESSION: No acute finding. Dictated and Authenticated by: Freddy Houston MD. Ordering:SOLEDAD Quiroz MD
== END 2019-04-22 20:40 | disposition left against medical advice (07) ==
PROVIDERS: Emergency Provider Physician Assistant; PCP Emergency Medicine
DX: R10.10 Upper abdominal pain, unspecified (principal); R07.89 Other chest pain; R91.1 Solitary pulmonary nodule; Z53.29 Procedure and treatment not carried out because of patient's decision for other reasons; I10 Essential (primary) hypertension; F17.210 Nicotine dependence, cigarettes, uncomplicated
CPT/HCPCS: 36415; 74177; 80053; 83690; 93005; 99285; 71260; 83735; 84484; 85025; 93010; J3490

== ENCOUNTER 2019-06-06 00:32 | Outpatient (CLI) | payer BC, SELFPAY ==
--- NOTE | 2019-06-06 10:30 | DI.MRI_ITS ---
EXAM: MR CERVICAL SPINE WO CLINICAL HISTORY: right neck pain, radiating R arm, rt cervical radiculopathy, M54.12. TECHNIQUE: Multiplanar multisequence MRI was performed. COMPARISON: No exams were available for comparison FINDINGS: MR examination of the cervical spine was performed according to the usual protocol. The examination w as somewhat limited by motion artifact. There is mild loss of the cervical lordosis. No significant focal bony signal abnormality is seen. Th ere are hypertrophic endplate and facet changes throughout the cervical region sparing C2-3. No significant findings at C2-3 level. At C3-4 there is mild prominence of the disc osteophyte complex, no focal disc herniation, neural for aminal stenosis, or central canal stenosis. At C4-5 there is mild right neural foraminal narrowing. No other significant findings. At C5-6 there is prominence of the disc osteophyte complex with mild associated anterior deformity of the spinal cord. There is an apparent mild superimposed central disc herniation and also a focal rig ht lateral disc herniation which narrows the right neural foramen. At C6-7 there is prominence of the disc osteophyte complex with a mild broad-based superimposed disc herniation, minimal impingement on the anterior cord surface noted without significant cord deformity . No significant findings at C7-T1. The spinal cord shows normal signal throughout. Visualized posterior fossa structures appear intact. IMPRESSION: Multilevel prominence of the disc osteophyte complex. Please see above discussion for findings at ind ividual levels. Findings are most prominent at C5-6 and C6-7 where there are superimposed disc hernia tions. Mild right neural foraminal narrowing noted at C4-5. DATA REPOSITORY:
== END 2019-06-06 00:52 ==
PROVIDERS: PCP Emergency Medicine; Visit Provider Nurse Practitioner Adult Health
DX: M54.12 Radiculopathy, cervical region (principal); M54.2 Cervicalgia; M50.222 Other cervical disc displacement at C5-C6 level; M50.223 Other cervical disc displacement at C6-C7 level
CPT/HCPCS: 72141

== ENCOUNTER 2020-11-19 01:00 | Outpatient (CLI) | payer OTHER, SELFPAY ==
--- NOTE | 2020-11-19 07:00 | DI.NM_ITS ---
APPROVED REPORT Exam: Pharmacologic Patient Location: Out-Patient Room/Bed: Stress Nurse: Herminia Azar RN Ordering Provider:LEORA SEO, Contact Number: [phone] BMI: 39.27 Baseline Rhythm: Sinus Bradycardia Comment: inverted T wave lead III Indications: Dyspnea on exertion. Medical History Medical History: Obesity, Chest pain, Sciatica, HLD, Smoker, KOBE w/ CPAP use Cardiac Medications: Amlodipine, Aspirin, Omeprazole, Pravastatin Allergies: Lisinopril Cardiac Risk Factors: HTN, Hyperlipidemia, Smoking (current), Obesity Previous Cardiac Procedures: None Pretest Chest Pain Characteristics: None Exercise History: Sedentary Physical Disabilities: Knees Lung Sounds: Clear to auscultation Heart Sounds: Regular (distant) Stress Test Details Test: Modified exercise stress converted to pharmacologic stress due to failure to obtain a diagnost ic stress test. Reason for pharmacologic stress test: changed from exercise stress test due to inability to reach t arget heart rate. Nuclear Acquisition: Rest Tc-99m/Stress Tc-99m 1 day Rest Isotope: Tc-99m Sestamibi. Dose: 14.1 Date: 11/19/2020 Injection Time: 0915 Stress Isotope: Tc-99m Sestamibi. Dose: 1124 Date: 11/19/2020 Injection Time: 1124 HR Resting HR Supine: 56 bpm Max Heart Rate (APMHR): 166.272836 bpm Resting HR Standin bpm Target HR (85% APMHR): 141.053902 bpm Max HR Achieved: 136 bpm % of APMHR: 81.93 Recovery HR: 78 bpm HR response to stress: Normal HR response to stress BP Resting BP Supine: 142/88 mmHg Resting BP Standin/82 mmHg Max BP: 190/88 mmHg Recovery BP: 160/84 mmHg BP response to stress: Normal blood pressure response to stress. ECG Resting ECG: Sinus Bradycardia Ectopy: None Stress ECG: Sinus Tachycardia ST Change: No significant ST segment changes noted Arrhythmia: PVCs Recovery ECG: Sinus Rhythm Recovery ST Change: No significant ST segment changes noted Recovery Arrhythmia: PVCs Clinical Reason for Termination: Dyspnea Stress Symptoms: Dyspnea, Upset stomach (w/ lexiscan injection) Exercise duration: 09 min36 sec Rate Pressure Product: [id number] Stress ECG Conclusion 1. This was an exercise stress test converted over to a pharmacological stress due to inability of re aching target heart rate. 2. The ECG portion of the exam is nondiagnostic. Stress Test Summary STAGE Time (mins) Speed (mph) Grade (%) HR BP SYMPTOMS METS Supine 56 142/88 SpO2 96% Standing 61 140/82 1 3 1.7 10 85 144/86 SpO2 94% 4.6 2 6 2.5 12 102 150/80 SpO2 95% 7 3 9 3.4 14 136 SpO2 94% mod. SOB 10.2 4 12 4.2 16 severe SOB 12.9 1 min post Lexiscan injection 113 190/88 upset stomach 3 min post Lexiscan injection 99 176/82 symptoms resolved 6 min post Lexiscan injection 78 160/84 Exercise stress test modified in stage 4 to encourage continuation. Severe SOB limited patient and is the reason for transition to walking lexiscan. Lexiscan injected while patient walking at 1.5 mph w/ 0% grade. MPI Conclusion The ejection fraction was 58% with stress. There were no wall motion delays. There was no evidence of ischemia on the imaging portion exam. This represents a normal SPECT stress test Radiologist Interpretation Radiologist agrees with Special Education Superintendent's Interpretation. Radiologist Interpretation by: Joie Arredondo MD Interpretation Date/Time: 11/19/2020 15:49:36
[2020-11-19] MEDS: Regadenoson 0.4 MG/5 ML SYR IVP (11:42)
== END 2020-11-19 01:20 ==
LOC: DI 01:01
PROVIDERS: PCP Emergency Medicine; Visit Provider Emergency Medicine
DX: R07.9 Chest pain, unspecified (principal); R06.09 Other forms of dyspnea; I10 Essential (primary) hypertension; E78.5 Hyperlipidemia, unspecified; F17.210 Nicotine dependence, cigarettes, uncomplicated; E66.9 Obesity, unspecified; R06.02 Shortness of breath
CPT/HCPCS: 78452; 93017; J2785

== ENCOUNTER 2020-11-19 03:35 | Outpatient (CLI) | payer OTHER, SELFPAY ==
[2020-11-19 09:31] LABS: Hemoglobin A1C 5.8 % (<5.7)
[2020-11-19 09:54] LABS: Anion Gap 11.2 mmol/L (3-11); BUN 16 mg/dL (7-18); CO2 25.8 mmol/L (21.0-32.0); CREATININE 0.9 mg/dL (0.70-1.30); Calculated LDL 88 mg/dL (<100); Chloride 105 mmol/L (98-107); Cholesterol 150 mg/dL (<200); Glucose 100 mg/dL (74-106); HDL Cholesterol 22 mg/dL (40-60); Potassium 4.4 mmol/L (3.5-5.1); Sodium 142 mmol/L (136-145); Triglyceride 200 mg/dL (<150)
== END 2020-11-19 03:36 | disposition home or self-care (01) ==
LOC: LBO 03:36
PROVIDERS: PCP Emergency Medicine; Visit Provider Emergency Medicine
DX: I10 Essential (primary) hypertension (principal); E11.9 Type 2 diabetes mellitus without complications; E78.5 Hyperlipidemia, unspecified
CPT/HCPCS: 36415; 80048; 80061; 83036

== ENCOUNTER 2020-12-07 01:26 | Outpatient (CLI) | payer OTHER, SELFPAY ==
--- OUTSIDE RECORDS SUMMARY | 2020-12-07 01:28 | XMS_ITS ---
:1965 Author Care Team Providers Name Role Phone LEORA SEO Primary Care Provider [phone] BRAYAN OTHER [phone] Allergies Code Code System Name Reaction Severity Status Onset 50631 RxNorm Lisinopril Cough ? Active ? Medications Name Status Start Date Stop Date ? ? amlodipine 5 mg tablet Active ? Not avail able Take 1 tablet every day by oral route. aspirin Active ? Not available 81mg daily ibuprofen 200 mg tablet Active ? Not avai lable Take 4 tablets by oral route as needed. Nexium Completed ? 01/10/2018 40mg daily omeprazole 20 mg capsule,delayed release Active ? Not available Take 1 capsule every day by oral route. Pravachol Active ? Not available 20 mg daily Problems Name Status Onset Date Source ? Fatigue Active 12/12/2017 ? Hyperlipidemia Active ? ? Obesity Active ? ? Smoker Active ? ? Obstructive Sleep Apnea Syndrome Active ? History Hypertensive Disorder Active ? ? Gastroesophageal Reflux Disease Active ? History Osteoarthritis Active ? ? Joint Pain Active ? History Sciatica Active ? ? Lack of Energy Active ? History Right Upper Quadrant Pain Active ? ? Derangement of Medial Meniscus of Left Active ? ? Knee Procedures Date Name Performed by ? ? Cholecystectomy Information not avai lable Results Lab Results None recorded. Past Encounters 07/30/2019 Obstructive Sleep Apnea Syndrome Michaelle Gallo [employer]: [address] [place] [phone], Ph. Social History Tobacco Smoking Status Heavy Tobacco Smoker (1/2 pack Note s: 16, 1/2 ppd per a day) Vaccine List None recorded. Plan of Care Reminders Provider Appointments None ? ? recorded. Lab None ? ? recorded. Referral None ? ? recorded. Procedures None ? ? recorded. Surgeries None ? ? recorded. Imaging None ? ? recorded. Vitals 07/30/2019 08:30AM Office 30 Height Weight BMI 175.26 cm 122.47 kg 39.9 kg/m2 07/16/2018 12:30PM Office 30 Height Weight BMI Blood Pressure 176.53 cm 121.65 kg 39 kg/m2 138/82 mm[Hg] 01/10/2018 09:00AM Office 30 Height Weight BMI Blood Pressure 176.53 cm 120.34 kg 38.6 kg/m2 141/94 mm[Hg] 10/17/2016 Height 175.26 cm 10/17/2016 Weight Blood Pressure 119.98 kg 138/92 mm[Hg] 06/29/2015 Height 175.26 cm 06/29/2015 Weight Blood Pressure 120.66 kg 124/82 mm[Hg] 04/06/2015 Weight Blood Pressure 121.11 kg 140/80 mm[Hg] 04/06/2015 Height 175.26 cm
--- NOTE | 2020-12-07 07:30 | DI.CT_ITS ---
Exam(s) CT ABDOMEN PELVIS W EXAM: CT ABDOMEN PELVIS W CLINICAL HISTORY: left flank and lower quardant pain,R10.32. TECHNIQUE: Imaging Protocol: Axial computed tomography images with coronal and sagittal reformatted images were created and reviewed CONTRAST MATERIAL: Intravenous: Omnipaque 100cc Oral: Yes COMPARISON: CT CT CHEST/ABD/PEL W from 04/22/2019 FINDINGS: VISUALIZED LUNG BASES: No nodules nor pleural effusions evident. ABDOMEN: There is no ascites. LIVER: Liver is again noted be hypodense implying steatosis. No discrete focal hepatic lesions ident ified. GALLBLADDER/BILIARY: The gallbladder is again noted be surgically absent. CBD is not dilated. PANCREAS: No evidence of pancreatic mass nor dilatation of the pancreatic duct. SPLEEN: Spleen is not enlarged. No obvious intrasplenic lesions. Splenic and portal veins are paten t. ADRENALS: There are no significant adrenal masses. KIDNEYS:1 centimeter benign cyst in the medial aspect of the left kidney. No other significant focal renal findings. No solid renal masses. No calculi nor hydronephrosis.. ABDOMINAL AORTA: Abdominal aorta is not enlarged. LYMPH NODES:There is no retroperitoneal nor paraaortic adenopathy. ABDOMINAL WALL: There is a midline fat containing small para umbilical hernia, unchanged from 2020. Does not contain bowel loops. GI: In the lower left abdomen-upper left pelvis there is a slightly dilated small bowel loop which ex hibits a diameter of 2.9 cm., possibly significant. No surrounding streaking nor obvious mesenteric swirl sign. Oral contrast has progressed distal to this bowel loop and is indeed in left side of the colon by the time of image acquisition. No obvious intussusception evident. No obvious mass. No mesenteric masses. PELVIS: GI: No evidence of appendicitis.No evidence of sigmoid diverticulitis. LYMPH NODES: There is no intrapelvic nor inguinal adenopathy. REPRODUCTIVE: Prostate slightly enlarged. URINARY BLADDER: No calculi nor obvious masses evident OSSEOUS: No significant osseous lesions. IMPRESSION: 1. Gallbladder surgically absent. The biliary tree is not dilated. 2. Hepatic steatosis, as was evident on the prior April 2019 study. No discrete focal hepatic les ions identified. 3. There is a slightly dilated small bowel loops in left side of the lower abdomen-upper pelvis. The re is no high-grade bowel obstruction. No ascites. No surrounding streaking. No pneumatosis. No o bvious intussusception. No mesenteric swirl sign. Superior mesenteric artery is patent. Superior mesenteric vein is patent. Appropriate follow-up recommended. RADIATION DOSE DELIVERED: 1,384.33mGy.cm Total DLP DATA REPOSITORY: All CT scans at this facility are submitted to the National Radiology Data Registry (NRDR) Dose Index Registry (DIR) with the [employer] (ACR). RADIATION OPTIMIZATION: All CT scans at this facility use at least one of these dose optimization te chniques: automated exposure control; mA and/or kV adjustment per patient size (includes targeted exa ms where dose is matched to clinical indication); or iterative reconstruction.
[2020-12-07] MEDS: Omnipaque 350 MG/ML 100 ML BTL 125 ML IJ (11:01)
[2020-12-07] MEDS: Normal Saline Flush 10 ML SYR IVP (11:02)
== END 2020-12-07 01:46 ==
LOC: DI 01:27
PROVIDERS: PCP Emergency Medicine; Visit Provider Surgery
DX: R10.32 Left lower quadrant pain (principal); Z90.49 Acquired absence of other specified parts of digestive tract; K76.0 Fatty (change of) liver, not elsewhere classified
CPT/HCPCS: 74177; J3490

== ENCOUNTER 2021-01-28 12:15 | Outpatient (CLI) | payer OTHER, SELFPAY ==
--- NOTE | 2021-01-28 11:30 | DI.RAD_ITS ---
Exam(s) XR LUMBAR SPINE COMPLETE EXAM: XR LUMBAR SPINE COMPLETE CLINICAL HISTORY: back pain M54.9 DORSALGIA. TECHNIQUE: 2D digital imaging was performed. COMPARISON: No exams were available for comparison FINDINGS: BONES: No fracture or destructive lesion. Vertebral bodies are normal in height. There are small end plate osteophytes.. [id number] facet hypertrophy identified at L4-5 and L5-S1.. DISKS: Intervertebral disc spaces are maintained. ALIGNMENT: Lumbar spinal alignment is within normal limits. SOFT TISSUE: Right upper quadrant surgical clips. IMPRESSION: Mild degenerative disc changes. DATA REPOSITORY: RADIATION DOSE DELIVERED:
== END 2021-01-28 12:35 ==
LOC: DI 12:19
PROVIDERS: PCP Emergency Medicine; Visit Provider Physician Assistant
DX: M54.59 Other low back pain (principal); M51.37 Other intervertebral disc degeneration, lumbosacral region
CPT/HCPCS: 72110

== ENCOUNTER 2021-02-23 02:44 | Outpatient (CLI) | payer OTHER, SELFPAY ==
[2021-02-23 15:03] LABS: Abs Immature Grans 0.05 10^3/uL (0.0-0.06); Absolute Basophil Count 0.09 10^3/uL (0.0-0.2); Absolute Eosinophil Count 0.35 10^3/uL (0.0-0.7); Absolute Lymphocyte Count 3.08 10^3/uL (1.2-3.4); Absolute Monocyte Count 0.67 10^3/uL (0.1-0.8); Absolute Neutrophil Count 6.23 10^3/uL (1.2-6.7); Basophils % 0.9; Eosinophils % 3.3; HCT 44.8 % (40.0-50.0); HGB 15.1 g/dL (13.5-17.5); Immature Grans % 0.5; Lymphocytes % 29.4; MCH 29.6 pg (27.0-33.0); MCHC 33.7 % (32.0-36.0); MCV 87.8 fL (80-95); MPV 10.8 fL (8.0-11.0); Monocytes % 6.4; Neutrophils % 59.5; Nucleated RBC 0 %; Platelet Count 216 10^3/uL (130-400); RDW 11.7 % (11.8-14.1); RDW-SD 37.7 fL; WBC 10.47 10^3/uL (4.4-10.8)
[2021-02-23 15:05] LABS: ESR 5 mm/hr (0-20)
[2021-02-23 15:07] LABS: Bilirubin Negative (Negative); Blood Negative (Negative); Clarity Clear (Clear); Glucose Negative (Negative); Ketones Negative (Negative); Leukocyte Esterase Negative (Negative); Nitrite Negative (Negative); Specific Gravity >= 1.030 (1.005-1.025); Urobilinogen 0.2 EU/dL (Up TO 0.2); pH 5.5 (5-8)
[2021-02-23 16:09] LABS: ALT 61 U/L (16-63); AST 30 U/L (15-37); Albumin 4.1 g/dL (3.4-5.0); Alkaline Phosphatase 64 U/L (46-116); Anion Gap 9.5 mmol/L (3-11); BUN 18 mg/dL (7-18); Bilirubin, Total 0.2 mg/dL (0.2-1.0); C-Reactive Protein 0.34 mg/dL (0.0-0.3); CO2 25.5 mmol/L (21.0-32.0); CREATININE 0.9 mg/dL (0.70-1.30); Calcium 8.6 mg/dL (8.5-10.1); Chloride 105 mmol/L (98-107); Glucose 131 mg/dL (74-106); Lipase 106 U/L (73-393); Potassium 4.1 mmol/L (3.5-5.1); Sodium 140 mmol/L (136-145); Total Protein 7.2 g/dL (6.4-8.2)
[2021-02-24 10:30] LABS: Hepatitis B Surface Ag Negative (Negative)
[2021-02-24 10:38] LABS: IgA 196 mg/dL (85-499); Interpretation (See Note); Tissue Transglutaminase IgA <1.2 U/mL (<4.0)
[2021-02-24 10:47] LABS: Hepatitis C Ab w Rflx HCV PCR Negative (Negative)
[2021-02-24 11:01] LABS: HIV-1/2 Ag & Ab Screen Negative (Negative)
== END 2021-02-23 02:45 | disposition home or self-care (01) ==
LOC: LBO 02:44
PROVIDERS: PCP Emergency Medicine; Visit Provider Family Medicine
DX: I10 Essential (primary) hypertension (principal); R10.11 Right upper quadrant pain; E78.5 Hyperlipidemia, unspecified; Z11.4 Encounter for screening for human immunodeficiency virus [HIV]; M54.50 Low back pain, unspecified; K21.9 Gastro-esophageal reflux disease without esophagitis; Z11.59 Encounter for screening for other viral diseases; Z87.19 Personal history of other diseases of the digestive system
CPT/HCPCS: 36415; 80053; 82784; 83516; 83690; 85652; 86803; 87340; 87389; 81003; 85025; 86140

== ENCOUNTER 2021-03-27 18:30 | Outpatient (REF) | payer SELFPAY ==
[2021-03-28 18:36] LABS: COVID-19 RT-PCR UVMMC Result Negative (Negative)
== END 2021-03-27 18:31 | disposition home or self-care (01) ==
LOC: LBN 18:30
PROVIDERS: PCP Emergency Medicine; Visit Provider Nurse Practitioner Family
DX: Z20.822 Contact with and (suspected) exposure to COVID-19 (principal)
CPT/HCPCS: U0003

== ENCOUNTER 2023-01-06 10:37 | Outpatient (CLI) | payer BC, SELFPAY ==
[2023-01-06 10:41] LABS: CREATININE 0.9 mg/dL (0.70-1.30); Calculated LDL 68 mg/dL (<100); Cholesterol 148 mg/dL (<200); Estimated GFR 100.24 (mL/min/1.73m2); HDL Cholesterol 26 mg/dL (40-60); Triglyceride 271 mg/dL (<150)
== END 2023-01-06 10:38 | disposition home or self-care (01) ==
LOC: LBO 10:38
PROVIDERS: PCP Nurse Practitioner Family; Visit Provider Nurse Practitioner Family
DX: E78.5 Hyperlipidemia, unspecified (principal); I10 Essential (primary) hypertension
CPT/HCPCS: 36415; 80061; 82565; 84132

== ENCOUNTER 2024-01-18 10:01 | Outpatient (CLI) | payer OTHER, SELFPAY ==
[2024-01-18 10:58] LABS: Hemoglobin A1C 5.6 % (<5.7)
[2024-01-18 11:11] LABS: Calculated LDL 73 mg/dL (<100); Cholesterol 154 mg/dL (<200); HDL Cholesterol 27 mg/dL (40-60); Triglyceride 271 mg/dL (<150)
[2024-01-18 20:29] LABS: PSA, Screening 1.4 ng/mL (<=3.5)
== END 2024-01-18 10:02 | disposition home or self-care (01) ==
LOC: LBO 10:01
PROVIDERS: PCP Nurse Practitioner Family; Visit Provider Nurse Practitioner Family
DX: Z13.220 Encounter for screening for lipoid disorders (principal); Z13.1 Encounter for screening for diabetes mellitus; Z12.5 Encounter for screening for malignant neoplasm of prostate
CPT/HCPCS: 36415; 80061; 84153; 83036

== ENCOUNTER 2025-01-15 18:31 | Outpatient (REF) | payer BC, SELFPAY ==
[2025-01-15 21:53] LABS: Anion Gap 9.5 mmol/L (3-11); BUN 17 mg/dL (7-18); CO2 27.5 mmol/L (21.0-32.0); Calcium 9.1 mg/dL (8.5-10.1); Calculated LDL 84 mg/dL (<100); Chloride 101 mmol/L (98-107); Cholesterol 164 mg/dL (<200); Estimated GFR 102.58 (mL/min/1.73m2); Glucose 92 mg/dL (74-106); HDL Cholesterol 23 mg/dL (>or=40); Potassium 4.3 mmol/L (3.5-5.1); Sodium 138 mmol/L (136-145); Triglyceride 288 mg/dL (<150)
[2025-01-15 21:54] LABS: Hemoglobin A1C 5.7 % (<5.7)
[2025-01-16 19:00] LABS: PSA, Screening 1.2 ng/mL (<=3.5)
== END 2025-01-15 18:32 | disposition home or self-care (01) ==
LOC: LBN 18:31
PROVIDERS: PCP Nurse Practitioner Family; Visit Provider Nurse Practitioner Family
DX: I10 Essential (primary) hypertension (principal); Z12.5 Encounter for screening for malignant neoplasm of prostate; Z13.220 Encounter for screening for lipoid disorders; Z13.1 Encounter for screening for diabetes mellitus
CPT/HCPCS: 80048; 80061; 84153; 83036

== ENCOUNTER 2025-02-10 03:38 | Outpatient (CLI) | payer BC, SELFPAY ==
--- NOTE | 2025-02-10 15:14 | W.NUTRFU ---
Date of service: 02/10/25 Time of Service: 15:14 Nutrition Note NOTE: Assessment Eduard requested telephonic appt today as his schedule is hectic and found it hard to find time to come in. Referral was for weight mgt and Eduard agrees, I need to do something about his weight gain. 02/03/25 weight: 127kg / Height: 69 inches / BMI: 41.3 IBW: 70.7kg / AjBW: 93.5kg A1C hx as high as 6.3% 10 years ago. 5.7% last month - consistent with prediabetes. Problem list includes HTN and HLD and NAFLD. Eduard has odd hours for work and leaves at 1am - takes a thermos of coffee (estimates about 16oz coffee and measures 6tsp sugar) but usually not hungry until close to 8am where he gives examples of stopping at [employer] for a chicken wrap or sims croissant s/w Might bring food along with him some days - mostly sandwiches - go through about a loaf of bread a week Has been liking oranges - trying to eat more of these lately. Likes veggies - not picky with them but not reported as routine in his diet except maybe at dinner meal. - drinks a large glass whole milk at dinner. No exercise currently - just the business of his job, but does spend a lot of time driving. Estimated energy needs: 2704kcals ([id number]) (recommend reduction to 2200kcals. 112-158g protein (1.2-1.7g/kg AjBW), 2.7L fluid (1mL per require kcal) Nutrition Dx: Excessive energy intake related to high intake of refined starches and high-fat meat and animal protein choices and added sugars, AEB nutrition intterview and current class III obesity per BMI >40. Intervention: Eduard agreed a sample menu that gives some ideas on balancing his day for weight loss might be helpful. I emphasized a pattern of eating that it proactive and utilizes some tools like [employer] cooler (which he has) to pack items/combos of foods for the day. We discussed added sugar goal of <40g per day and that his coffee adds 24g of this alone on a daily basis. -Emphasized high fiber diet and getting protein routinely to offset hunger spikes. -email sent to patient to summarize steps to improve diet pattern and will have my contact info to reach out for follow up or answer any questions. Monitoring: Pt will call if desiring continued support/follow up Time Spent in Nutritional Counseling and Treatment: 25 min
== END 2025-02-10 03:39 | disposition home or self-care (01) ==
LOC: DS 03:38
PROVIDERS: PCP Nurse Practitioner Family; Visit Provider Dietitian, Registered
DX: E66.01 Morbid (severe) obesity due to excess calories (principal); Z68.41 Body mass index [BMI] 40.0-44.9, adult
CPT/HCPCS: 00123; 97802